=== PATIENT | male | born 1995 | race Caucasian/White ===

== ENCOUNTER 2016-07-27 12:45 | Emergency (ER) | payer OTHER ==
[~2016-07-27] VITALS: Ht 180.3 cm; Wt 84.1 kg
[~2016-07-27 12:45] MED LIST: LEVE-5 PO; PHEN300C2 PO
[2016-07-27 12:49] VITALS: Ht 180.3 cm; Wt 84.1 kg
[2016-07-27] MEDS ORDERED: ONDANSETRON 4 MG INJ IV STA (12:58)
[2016-07-27] MEDS ORDERED: SOD CHLORIDE 0.9% 500 ML IV STA (12:58)
[2016-07-27] MEDS ORDERED: LEVETIRACETAM 1000 MG (PMX) 100 ML IVPB STA (12:58)
[2016-07-27] MEDS ORDERED: PHEN100C PO (13:01)
[2016-07-27 13:17] LABS: ADD SCAN DIFF NO
[2016-07-27 13:19] LABS: BASOPHILS % 0.4 % (0.0-2.0); EOSINOPHILS % 0.4 % (0.0-7.0); HEMATOCRIT 43.6 % (42.0-52.0); HEMOGLOBIN 15.2 g/dl (14.0-18.0); LYMPHOCYTES # 1.2 10^3/ul (0.8-2.9); LYMPHOCYTES % 16.6 % (15.0-51.0); MEAN CORPUSCULAR HEMOGLOBIN 30.9 pg (29.0-33.0); MEAN CORPUSCULAR HGB CONC 34.9 g/dl (32.0-37.0); MEAN CORPUSCULAR VOLUME 88.6 fl (82.0-101.0); MEAN PLATELET VOLUME 10.8 fl (7.4-10.4); MONOCYTE # 0.5 10^3/ul (0.3-0.9); MONOCYTES % 6.9 % (0.0-11.0); NEUTROPHIL # 5.6 10^3/ul (1.6-7.5); NEUTROPHILS % 75.3 % (39.0-77.0); PLATELET COUNT 214 10^3/UL (140-415); RED BLOOD COUNT 4.92 10^6/ul (4.70-6.10); RED CELL DISTRIBUTION WIDTH 12.5 % (11.5-14.5); WHITE BLOOD COUNT 7.4 10^3/ul (4.8-10.8)
[2016-07-27 13:36] LABS: CALCIUM 9.5 mg/dl (8.4-10.2); CREATININE 0.91 mg/dl (0.61-1.24); POTASSIUM 4.2 mmol/L (3.5-5.1)
[2016-07-27] MEDS ORDERED: IBUPROFEN 600 MG TAB PO ONE (14:00)
--- NOTE | 2016-07-27 14:14 | ERD ---
ER Documentation Chief Complaint Date/Time DATE: 07/27/16 TIME: 14:12 Chief Complaint seizure at home in bed at 8am, 8hrs of aloc until now HPI This is a 21-year-old male presents to the emergency room for evaluation of his seizure. This patient does have a history of epilepsy and is on Dilantin and Keppra. The patient states that he was late in administering the dose of medication to himself and did have a seizure. The patient did call 911 after was brought to the ER for further evaluation. He is denying any headache or chills or fevers at this time. ROS All systems reviewed and are negative except as per history of present illness. Medications Home Meds Active Scripts Levetiracetam* (Keppra*) 500 Mg Tablet, 500 MG PO BID, #60 TAB Prov:CAYLA RODRIGUEZ MD 08/21/15 Reported Medications Phenytoin* Sodium Extended (Dilantin*) 100 Mg Capsule, 300 MG PO BID, CAP 07/27/16 Discontinued Scripts Phenytoin* Sodium Extended (Dilantin*) 300 Mg Capsule, 300 MG PO TID, #90 CAP Prov:CAYLA RODRIGUEZ MD 08/21/15 Allergies Allergies: Coded Allergies: No Known Allergies (Verified Allergy, Mild, 07/27/16) PMhx/Soc History of Surgery: Yes (Left Mandibular Plate Surgery) Anesthesia Reaction: No Hx Neurological Disorder: Yes (Epilepsy) Hx Respiratory Disorders: No Hx Cardiac Disorders: No Hx Psychiatric Problems: Yes (Bipolar D/O, hx depression with self harm) Hx Miscellaneous Medical Probl: No Hx Alcohol Use: Yes (Social) Hx Substance Use: Yes (Occasional [place]) Hx Tobacco Use: Yes (Social) Smoking Status: Light tobacco smoker Physical Exam Vitals Vital Signs Date Time Temp Pulse Resp B/P Pulse Ox O2 Delivery O2 Flow Rate FiO2 07/27/16 12:49 97.6 90 16 117/59 95 Physical Exam INITIAL VITAL SIGNS: Reviewed by me GENERAL: The patient is well developed and appropriate for usual state of health in no apparent distress HEENT: Pupils equal, round, and reactive to light. EOMI. There is no scleral icterus. NECK: C-spine is soft and supple, there is no meningismus. There is no cervical lymphadenopathy. LUNGS: Clear to auscultation bilaterally. There are no rales, wheezes or rhonchi. HEART: Regular rate and rhythm, no murmurs, clicks, rubs or gallops. ABDOMEN: Soft, non-tender, non-distended. There are bowel sounds in all four quadrants. No rebound or guarding. EXTREMITIES: There is no peripheral cyanosis or edema. No focal swelling or erythema. NEUROLOGICAL: The patient moves all four extremities with 5/5 strength. Cranial nerves II - XII are intact. Normal gait. Alert and oriented to person place and time SKIN: There is no apparent rash or petechiae. HEME/LYMPHATIC: There is no evidence of excessive bruising or lymphedema. PSYCHIATRIC: The patient does not appear anxious or depressed. Result Diagram: 07/27/16 1315 07/27/16 1315 Results 24 hrs Laboratory Tests Test 07/27/16 13:15 White Blood Count 7.410^3/ul Red Blood Count 4.9210^6/ul Hemoglobin 15.2g/dl Hematocrit 43.6% Mean Corpuscular Volume 88.6fl Mean Corpuscular Hemoglobin 30.9pg Mean Corpuscular Hemoglobin Concent 34.9g/dl Red Cell Distribution Width 12.5% Platelet Count 71853^3/UL Mean Platelet Volume 10.8fl Neutrophils % 75.3% Lymphocytes % 16.6% Monocytes % 6.9% Eosinophils % 0.4% Basophils % 0.4% Nucleated Red Blood Cells % 0.0/100WBC Neutrophils # 5.610^3/ul Lymphocytes # 1.210^3/ul Monocytes # 0.510^3/ul Eosinophils # 0.010^3/ul Basophils # 0.010^3/ul Nucleated Red Blood Cells # 0.010^3/ul Sodium Level 140mmol/L Potassium Level 4.2mmol/L Chloride Level 108mmol/L Carbon Dioxide Level 24mmol/L Anion Gap 12 Blood Urea Nitrogen 9mg/dl Creatinine 0.91mg/dl Glucose Level 98mg/dl Calcium Level 9.5mg/dl Current Medications Medications (Trade) Dose Ordered Sig/Stephania Route PRN Reason Start Time Stop Time Status Last Admin Dose Admin Sodium Chloride 500 ml @ 500 mls/hr Q1H STAT IV 07/27/16 12:58 07/27/16 13:57 DC 07/27/16 13:34 Levetiracetam (Keppra 1,000mg/ 100ml (Pmx)) 100 ml @ 400 mls/hr ONCE STAT IVPB 07/27/16 12:58 07/27/16 13:12 DC 07/27/16 13:38 Ondansetron HCl (Zofran Inj) 4 mg ONCE STAT IV 07/27/16 12:58 07/27/16 13:00 DC 07/27/16 13:32 Ibuprofen (Motrin) 600 mg ONCE ONCE PO 07/27/16 14:00 07/27/16 14:01 DC Procedures/MDM This 21-year-old male presents to the emergency room for seizure activity after missing his doses of seizure medication. The patient normally takes Keppra and Dilantin daily. When I evaluated this patient he was in no acute distress with no focal neurological deficits. Lab work is within normal limits. The patient was given 1 g of Keppra IV. He was also given Tylenol as he did state that he started to develop a little headache after his IV was put in. The patient has no focal neurological deficits at this time and will be discharged home. Departure Diagnosis: Primary Impression: Seizure disorder Condition: Stable VANESSA CARBAJAL DO Jul 27, 2016 14:14
[2016-07-27 14:28] VITALS: BP 120/91; PULSE 88; RESP 16; TEMP 98.8
== END 2016-07-27 14:30 | disposition home or self-care (01) ==
LOC: E/R 12:45
DX: G40.909 Epilepsy, unspecified, not intractable, without status epilepticus (principal); F17.210 Nicotine dependence, cigarettes, uncomplicated
CPT/HCPCS: 36415; 80048; 85025; 96374; 96375; J1953; J2405; J7040; Z7502; Z7610

== ENCOUNTER 2016-08-12 13:25 | Emergency (ER) | payer OTHER ==
[~2016-08-12] VITALS: Ht 172.7 cm; Wt 65.0 kg
[~2016-08-12 13:25] MED LIST changes: +PHEN100C PO; -PHEN300C2 PO
[2016-08-12 13:36] VITALS: Ht 172.7 cm; Wt 65.0 kg
[2016-08-12] MEDS ORDERED: LEVETIRACETAM 1000 MG (PMX) 100 ML IVPB STA (13:52)
[2016-08-12] MEDS ORDERED: SOD CHLORIDE 0.9% 1,000 ML IV STA (13:52)
[2016-08-12] MEDS ORDERED: ACETAMINOPHEN 325 MG TAB PO ONE (14:00)
[2016-08-12 14:32] LABS: BASOPHILS % 0.3 % (0.0-2.0); EOSINOPHILS # 0.1 10^3/ul (0.0-0.5); EOSINOPHILS % 0.5 % (0.0-7.0); HEMATOCRIT 43.5 % (42.0-52.0); HEMOGLOBIN 14.6 g/dl (14.0-18.0); LYMPHOCYTES % 9.7 % (15.0-51.0); MEAN CORPUSCULAR HEMOGLOBIN 30.1 pg (29.0-33.0); MEAN CORPUSCULAR HGB CONC 33.6 g/dl (32.0-37.0); MEAN CORPUSCULAR VOLUME 89.7 fl (82.0-101.0); MEAN PLATELET VOLUME 10.6 fl (7.4-10.4); MONOCYTE # 0.6 10^3/ul (0.3-0.9); MONOCYTES % 5.9 % (0.0-11.0); NEUTROPHIL # 8.3 10^3/ul (1.6-7.5); NEUTROPHILS % 83.3 % (39.0-77.0); PLATELET COUNT 196 10^3/UL (140-415); RED BLOOD COUNT 4.85 10^6/ul (4.70-6.10); RED CELL DISTRIBUTION WIDTH 12.6 % (11.5-14.5); WHITE BLOOD COUNT 9.9 10^3/ul (4.8-10.8)
--- NOTE | 2016-08-12 14:59 | RADRPT ---
PROCEDURE: CT Brain CLINICAL INDICATION: recurrent seizure, hit head, bump TECHNIQUE: The study was performed utilizing a multidetector CT scanner. Multiple axial images wer e obtained through the brain. The images were reviewed on a PACS workstation. DLP 720.23 mGycm CTDIvol 44.58 mGy One or more of the following dose reduction techniques were used: - Automated exposure control. - Adjustment of the mA and/or kV according to patient size. - Use of iterative reconstruction technique. COMPARISON: CT brain from 07/14/2015 FINDINGS: Ventricular and sulcal size appear normal for patient age. There is no mass effect or midline shift . There is no evidence for acute intracranial hemorrhage or loss of aleman/white differentiation to s uggest acute territorial infarction. No intra-axial or extra-axial fluid collections are present. No fracture defects are seen on the axial bone windows. The visualized paranasal sinus appear normal. The mastoid air cells are normally aerated. Visualiz ed orbital structures are unremarkable. IMPRESSION: No intracranial hemorrhage or midline shift. RPTAT: EE Physician Bg Date Time Electronically viewed and signed by Physician Bg on 08/12/2016 14:59 /
[2016-08-12 15:00] LABS: CALCIUM 9.5 mg/dl (8.4-10.2); CREATININE 0.8 mg/dl (0.61-1.24); POTASSIUM 4.2 mmol/L (3.5-5.1)
[2016-08-12 16:51] VITALS: BP 110/61; PULSE 64; RESP 20
--- NOTE | 2016-08-12 17:00 | ERD ---
ER Documentation Chief Complaint Date/Time DATE: 08/12/16 TIME: 16:51 Chief Complaint BIB [facility] FOR EVAL OF SEIZURE. TAKES DILANTIN AND KEPPRA. BUMP TO HEAD HPI 21-year-old male presents emergency room for seizure. He has recurrent seizures the last one being 3 months ago but he came to the emergency room this time because he also bumped his head. It was a witnessed seizure that was generalized tonic-clonic lasting a couple of minutes. He has mild pain and a bump on his forehead and generalized body soreness. He believes the seizure may be secondary to him not eating enough sleep as that is usually trigger. Is working a job and to get home until late was not able to get to bed until very late. ROS All systems reviewed and are negative except as per history of present illness. Medications Home Meds Reported Medications Phenytoin* Sodium Extended (Dilantin*) 100 Mg Capsule, 300 MG PO BID, CAP 07/27/16 Levetiracetam* (Keppra*) 500 Mg Tablet, 500 MG PO BID, TAB 04/15/15 Discontinued Reported Medications Phenytoin* Sodium Extended (Dilantin*) 100 Mg Capsule, 100 MG PO TID, CAP 04/15/15 Discontinued Scripts Levetiracetam* (Keppra*) 500 Mg Tablet, 500 MG PO BID, #60 TAB Prov:CAYLA RODRIGUEZ MD 08/21/15 Phenytoin* Sodium Extended (Dilantin*) 100 Mg Capsule, 300 MG PO Q3H, #6 CAP To load your dilantin take 300mg by 3-4 hours. Do this for 2 doses. Then start your regular dosing of your Dilantin tomorrow. Prov:ANNA HENSLEY MD 06/20/15 Phenytoin* Sodium Extended (Dilantin*) 100 Mg Capsule, 100 MG PO TID for 30 Days , CAP Prov:ANNA HENSLEY MD 06/20/15 Levetiracetam* (Keppra*) 500 Mg Tablet, 500 MG PO BID for 30 Days, TAB Prov:ANNA HENSLEY MD 06/20/15 Allergies Allergies: Coded Allergies: No Known Allergies (Verified Allergy, Mild, 08/12/16) PMhx/Soc History of Surgery: Yes (Left Mandibular Plate Surgery) Anesthesia Reaction: No Hx Neurological Disorder: Yes (Epilepsy) Hx Respiratory Disorders: No Hx Cardiac Disorders: No Hx Psychiatric Problems: Yes (Bipolar D/O, hx depression with self harm) Hx Miscellaneous Medical Probl: No Hx Alcohol Use: Yes (Social) Hx Substance Use: Yes (Occasional [place]) Hx Tobacco Use: Yes (Social) Smoking Status: Never smoker Physical Exam Vitals Vital Signs Date Time Temp Pulse Resp B/P Pulse Ox O2 Delivery O2 Flow Rate FiO2 08/12/16 15:49 60 20 109/63 99 Room Air 08/12/16 13:36 97.4 72 18 110/70 97 Physical Exam Const: [] No distress Head: Small raised area in mid right frontal forehead with slight abrasion. Eyes: Normal Conjunctiva, EOMI, PRL ENT: Normal External Ears, Nose and Mouth. Neck: Full range of motion..~ No meningismus. Resp: Clear to auscultation bilaterally Cardio: Regular rate and rhythm, no murmurs Abd: Soft, non tender, non distended. Normal bowel sounds Skin: No petechiae or rashes Back: No midline or flank tenderness Ext: No cyanosis, or edema Neur: Awake and alert and oriented 3, cranial nerves II through XII intact, no cerebellar deficits Psych: Normal Mood and Affect Result Diagram: 08/12/16 1420 08/12/16 1420 Results 24 hrs Laboratory Tests Test 08/12/16 14:20 08/12/16 14:36 White Blood Count 9.910^3/ul Red Blood Count 4.8510^6/ul Hemoglobin 14.6g/dl Hematocrit 43.5% Mean Corpuscular Volume 89.7fl Mean Corpuscular Hemoglobin 30.1pg Mean Corpuscular Hemoglobin Concent 33.6g/dl Red Cell Distribution Width 12.6% Platelet Count 05092^3/UL Mean Platelet Volume 10.6fl Neutrophils % 83.3% Lymphocytes % 9.7% Monocytes % 5.9% Eosinophils % 0.5% Basophils % 0.3% Nucleated Red Blood Cells % 0.0/100WBC Neutrophils # 8.310^3/ul Lymphocytes # 1.010^3/ul Monocytes # 0.610^3/ul Eosinophils # 0.110^3/ul Basophils # 0.010^3/ul Nucleated Red Blood Cells # 0.010^3/ul Sodium Level 138mmol/L Potassium Level 4.2mmol/L Chloride Level 103mmol/L Carbon Dioxide Level 24mmol/L Anion Gap 15 Blood Urea Nitrogen 10mg/dl Creatinine 0.80mg/dl Glucose Level 102mg/dl Calcium Level 9.5mg/dl Phenytoin (Dilantin) Level 3.3ug/ml Bedside Glucose 99mg/dL Current Medications Medications (Trade) Dose Ordered Sig/Stephania Route PRN Reason Start Time Stop Time Status Last Admin Dose Admin Sodium Chloride 1,000 ml @ 1,000 mls/hr Q1H STAT IV 08/12/16 13:52 08/12/16 14:51 DC 08/12/16 14:34 Levetiracetam (Keppra 1,000mg/ 100ml (Pmx)) 100 ml @ 400 mls/hr ONCE STAT IVPB 08/12/16 13:52 08/12/16 14:06 DC 08/12/16 15:14 Acetaminophen (Tylenol Tab) 650 mg ONCE ONCE PO 08/12/16 14:00 08/12/16 14:01 DC 08/12/16 14:33 Procedures/MDM Recurrent seizure with head contusion. Patient's Dilantin level was slightly subtherapeutic. He was loaded with a gram of Keppra in the emergency room given a liter of normal saline. He remained stable with no postictal. In the emergency room. Vital signs are stable. Going to discharge him with instructions to follow-up with his doctor on Sunday and notify his neurologist about the seizure. No signs of secondary hemorrhage or other brain bleed on CT. Patient is feeling well. No signs of infection. CT head interpretation: I see no acute process, no hemorrhage no mass-effect or midline shift no skull fracture. Departure Diagnosis: Primary Impression: Seizure Additional Impression: Head injury Condition: Stable Patient Instructions: Seizure, Recurrent [Adult] Additional Instructions: Call your primary care doctor TOMORROW for an appointment during the next 1-2 days.See the doctor sooner or return here if your condition worsens before your appointment time. VICK GRAY DO Aug 12, 2016 17:00
== END 2016-08-12 18:03 | disposition home or self-care (01) ==
LOC: E/R 13:25
DX: R56.9 Unspecified convulsions (principal); S09.90XA Unspecified injury of head, initial encounter; R40.2142 Coma scale, eyes open, spontaneous, at arrival to emergency department; R40.2252 Coma scale, best verbal response, oriented, at arrival to emergency department; R40.2362 Coma scale, best motor response, obeys commands, at arrival to emergency department; W22.8XXA Striking against or struck by other objects, initial encounter; Y92.9 Unspecified place or not applicable
CPT/HCPCS: 36415; 70450; 80048; 80185; 82962; 85025; 96374; J1953; J7030; Z7502; Z7610

== ENCOUNTER 2017-02-05 20:30 | Emergency (ER) | payer OTHER ==
[~2017-02-05] VITALS: Ht 180.3 cm; Wt 90.0 kg
[2017-02-05 20:57] VITALS: Ht 180.3 cm; Wt 90.0 kg
[2017-02-05] MEDS ORDERED: ONDANSETRON (ODT) 4 MG TAB ODT STA (22:39)
--- NOTE | 2017-02-05 23:03 | RADRPT ---
PROCEDURE: X-ray Chest. CLINICAL INDICATION: Cough. TECHNIQUE: Single view chest x-ray. COMPARISON: None available. FINDINGS: The cardiomediastinal silhouette is within normal limits. The lungs are clear without f ocal consolidation, effusion, or pneumothorax. There are no acute osseous abnormalities. IMPRESSION: 1. No acute cardiopulmonary abnormality. RPTAT: HLBP .David Bhat MD, MD Date Time Electronically viewed and signed by .David Bhat MD, on 02/05/2017 23:03 .P/
[2017-02-05] MEDS ORDERED: ONDA4TAB14 PO (23:22)
[2017-02-05] MEDS ORDERED: SODI126M NASAL (23:22)
[2017-02-05] MEDS ORDERED: GUAI-637 PO (23:22)
[2017-02-05] MEDS ORDERED: ACET500C5 PO (23:22)
[2017-02-05 23:30] VITALS: BP 119/68; PULSE 93; RESP 16; TEMP 101
[2017-02-05] MEDS ORDERED: ACETAMINOPHEN 500 MG TAB PO STA (23:41)
[2017-02-05] MEDS ORDERED: ALBU18HF INHALATION (23:45)
--- NOTE | 2017-02-05 23:45 | ERD ---
ER Documentation Chief Complaint Chief Complaint Vomitting, loss of voice. sore throat x 7 days HPI 22-year-old male complaining of cough 7 days, and vomiting 3-4 days. Patient reports 3 episodes of vomiting today. The vomit is nonbloody and nonbilious. He says that he had not been drinking much water in the last 3-4 days. He is complaining of headache, subjective fever and shortness of breath. Patient states that he is currently homeless. Patient has history of asthma, but does not have any inhaler. Denies abdominal pain or diarrhea. ROS All systems reviewed and are negative except as per history of present illness. Medications Home Meds Active Scripts Albuterol Sulfate* (Ventolin HFA*) 18 Gm Hfa.aer.ad, 2 PUFF INHALATION Q4H, #1 INHALER Prov:CAMILO ROMAN. PHOTOGRAMMETRIC ENGINEER 02/05/17 Guaifenesin* (Robitussin*) 100 Mg/5 Ml Syrup, 200 MG PO Q4H Y for COUGH, #120 ML Prov:CAMILO ROMAN NP 02/05/17 Sodium Chloride (Saline Nasal Mist) 126 Ml Mist, 2 SPRAY NASAL Q2H Y for NASAL CONGESTION, #1 BOTTLE Prov:CAMILO ROMAN PHOTOGRAMMETRIC ENGINEER 02/05/17 Ondansetron (Ondansetron Odt) 4 Mg Tab.rapdis, 4 MG PO Q6H Y for NAUSEA AND/OR VOMITING, #10 TAB Prov:CAMILO ROMAN NP 02/05/17 Acetaminophen* (Tylophen*) 500 Mg Capsule, 1 CAP PO Q6H Y for PAIN AND OR ELEVATED TEMP, #20 CAP Prov:CAMILO ROMAN PHOTOGRAMMETRIC ENGINEER 02/05/17 Reported Medications Phenytoin* Sodium Extended (Dilantin*) 100 Mg Capsule, 300 MG PO BID, CAP 07/27/16 Levetiracetam* (Keppra*) 500 Mg Tablet, 500 MG PO BID, TAB 04/15/15 Allergies Allergies: Coded Allergies: No Known Allergies (Verified Allergy, Mild, 08/12/16) PMhx/Soc History of Surgery: Yes (Left Mandibular Plate Surgery) Anesthesia Reaction: No Hx Neurological Disorder: Yes (Epilepsy) Hx Respiratory Disorders: No Hx Cardiac Disorders: No Hx Psychiatric Problems: Yes (Bipolar D/O, hx depression with self harm) Hx Miscellaneous Medical Probl: No Hx Alcohol Use: Yes (Social) Hx Substance Use: Yes (Occasional [place]) Hx Tobacco Use: Yes (Social) Smoking Status: Current every day smoker Physical Exam Vitals Vital Signs Date Time Temp Pulse Resp B/P Pulse Ox O2 Delivery O2 Flow Rate FiO2 02/05/17 20:57 99.4 101 24 125/86 97 Physical Exam General: Well-developed, well-nourished, conscious and coherent, in no distress Skin: Warm and dry without rash, good texture and turgor Head: Normocephalic without evidence of trauma Eyes: Sclera and conjunctivae normal; pupils equal, round, and reactive to light; extraocular movements are intact Ears: Canals are patent. Tympanic membranes are clear Nose/Face: Nasal mucosa erythematous swollen with clear rhinorrhea Mouth/throat: Mucous membranes are moist. Posterior pharynx clear without erythema or exudates Neck: Supple without meningismus or adenopathy. Carotids are equal. Trachea midline. No bruits or JVD Chest: Normal AP diameter. Good expansion without retractions. Nontender. Lungs are clear to auscultate bilaterally with good tidal volume Heart: Regular rate and rhythm. No murmur, rub, or gallops heard Abdomen: Soft and nontender without masses, guarding, or rebound. Bowel sounds are active. No hepatosplenomegaly Extremities: Full range of motion. Good strength bilaterally. No clubbing, cyanosis, or edema. Peripheral pulses are intact. Sensation intact Neuro: Alert and oriented 4, GCS 15. Cranial nerves grossly intact. Motor and sensory exams nonfocal. Moves all extremities. Speech clear. Gait normal Results 24 hrs Current Medications Medications (Trade) Dose Ordered Sig/Stephania Route PRN Reason Start Time Stop Time Status Last Admin Dose Admin Ondansetron HCl (Zofran Odt) 4 mg ONCE STAT ODT 02/05/17 22:39 02/05/17 22:41 DC 02/05/17 22:49 Acetaminophen (Tylenol Tab) 500 mg ONCE STAT PO 02/05/17 23:41 02/05/17 23:42 DC Procedures/MDM 22-year-old male present ED with subjective fever, cough and vomiting. Zofran given to the patient in the ED, patient able to tolerate p.o. fluid challenge after Zofran. Patient is afebrile, in no respiratory distress. Lungs are clear to auscultate. I doubt that patient has pneumonia or bronchitis. Patient does not have any abdominal tenderness on palpation. I doubt acute appendicitis, cholecystitis, bowel obstruction or other acute abdomen. Patient's symptoms is consistent with that of viral syndrome. Patient does not have any active vomiting, is able to maintain by mouth fluid intake. Patient does not show any sign of dehydration. Patient appears well, stable for discharge and outpatient management. Medical decision making shared with patient and family. Education provided to patient and family. Patient and family expressed understanding of the plan. Medications on discharge: Tylenol, saline nasal spray, Robitussin, Ventolin. Follow-up: Primary care provider in 2-3 days or return to ED if worse. Disclaimer: Inadvertent spelling and grammatical errors are likely due to EHR/ dictation software use and do not reflect on the overall quality of patient care. Also, please note that the electronic time recorded on this note does not necessarily reflect the actual time of the patient encounter. Departure Diagnosis: Primary Impression: Viral syndrome Condition: Stable Patient Instructions: Viral Syndrome (Adult) Referrals: [facility] YOU HAVE RECEIVED A MEDICAL SCREENING EXAM AND THE RESULTS INDICATE THAT YOU DO NOT HAVE A CONDITION THAT REQUIRES URGENT TREATMENT IN THE EMERGENCY DEPARTMENT. FURTHER EVALUATION AND TREATMENT OF YOUR CONDITION CAN WAIT UNTIL YOU ARE SEEN IN YOUR DOCTORS OFFICE WITHIN THE NEXT 1-2 DAYS. IT IS YOUR RESPONSIBILITY TO MAKE AN APPOINTMENT FOR FOLOW-UP CARE. IF YOU HAVE A PRIMARY DOCTOR --you should call your primary doctor and schedule an appointment IF YOU DO NOT HAVE A PRIMARY DOCTOR YOU CAN CALL OUR PHYSICIAN REFERRAL HOTLINE AT IF YOU CAN NOT AFFORD TO SEE A PHYSICIAN YOU CAN CHOSE FROM THE FOLLOWING [facility] [address] [facility] [address] [facility] [address] [facility] [address] [facility]. [facility] [address] [facility]. [facility]. [address] Additional Instructions: Call your primary care doctor TOMORROW for an appointment during the next 2-3 days.See the doctor sooner or return here if your condition worsens before your appointment time. CAMILO ROMAN NP Feb 05, 2017 23:45
== END 2017-02-05 23:51 | disposition home or self-care (01) ==
LOC: FTE 20:30
DX: B34.9 Viral infection, unspecified (principal); F17.210 Nicotine dependence, cigarettes, uncomplicated
CPT/HCPCS: 71010; Z7502; Z7610

== ENCOUNTER 2017-12-11 07:32 | Inpatient (IN) | END 2017-12-12 18:30 | disposition home or self-care (01) | DRG 917 ==